=== PATIENT | female | born 1990 | race Two or more races ===

== ENCOUNTER 2020-06-24 13:00 | Inpatient (IN) | payer BC ==
[~2020-06-24] VITALS: Ht 170.2 cm; Wt 75.3 kg
[2020-07-04] MEDS ORDERED: PRENATAL TABLE1 EAC1 PO (14:40)
== END 2020-07-07 15:20 | disposition home or self-care (01) | DRG 768 ==
LOC: LDR 07-04 13:25 → SURG-SUITE 07-05 01:11 → OB/GYN 07-11 13:00
PROVIDERS: ADMIT Obstetrics & Gynecology; ATTEND Obstetrics & Gynecology
PROC: 10E0XZZ Delivery of Products of Conception, External Approach (ICD-10-PCS; principal; 2020-07-04)
PROC: 0DQR0ZZ Repair Anal Sphincter, Open Approach (ICD-10-PCS; 2020-07-04)
PROC: 0DQP0ZZ Repair Rectum, Open Approach (ICD-10-PCS; 2020-07-04)
PROC: 0W8NXZZ Division of Female Perineum, External Approach (ICD-10-PCS; 2020-07-04)
PROC: 4A1HXFZ Monitoring of Products of Conception, Cardiac Rhythm, External Approach (ICD-10-PCS; 2020-07-04)
DX: O70.3 Fourth degree perineal laceration during delivery (principal); Z37.0 Single live birth; Z3A.39 39 weeks gestation of pregnancy; Z20.822 Contact with and (suspected) exposure to COVID-19

== ENCOUNTER 2020-07-18 11:31 | Outpatient (CLI) | payer BC ==
[~2020-07-18 11:31] MED LIST: PRENATAL TABLE1 EAC1 PO
== END 2020-07-18 11:39 | disposition home or self-care (01) ==
LOC: SONOGRAMA 11:31
PROVIDERS: ATTEND Obstetrics & Gynecology
DX: D24.1 Benign neoplasm of right breast (principal); D24.2 Benign neoplasm of left breast; N64.59 Other signs and symptoms in breast